=== PATIENT | male | born 1960 | race Caucasian/White ===

== ENCOUNTER → 2017-08-07 | Outpatient (CLI) | payer BC | END | disposition home or self-care (01) | LOC: NM 08:25 | DX: R06.00 Dyspnea, unspecified (principal) | CPT/HCPCS: 78452; 93017; 93306; 96374; A9500 ==

== ENCOUNTER → 2018-12-19 | Outpatient (CLI) | payer BC ==
--- NOTE | 2018-12-19 17:54 | RAD ---
CT CHEST WO CONTRAST INDICATION: COPD, history of smoking. COMPARISON STUDY: Chest radiograph 11/05/2018. TECHNIQUE: Unenhanced axial images were obtained through the lungs and upper abdomen. Coronal and sagittal multiplanar reconstructions were also obtained. PQRS compliance statement: One or more of the following individualized dose reduction techniques were utilized for this examination: 1. Automated exposure control 2. Adjustment of the mA and/or kV according to patient size 3. Use of iterative reconstruction technique FINDINGS: Lungs and Airways: Small area of right upper lobe tree-in-bud opacities and groundglass nodules. Endobronchial mucous plugging in this region. Calcified pulmonary granulomas. Pleura: The pleural spaces are normal. Heart and Mediastinum: The visualized thyroid gland is normal in size and attenuation. No axillary or supraclavicular lymphadenopathy. No mediastinal, hilar or retrocrural lymphadenopathy. Calcified mediastinal and hilar lymph nodes consistent with remote granulomatous disease. Normal cardiac size. No pericardial effusion. Coronary artery atherosclerotic disease. Atherosclerosis of the thoracic aorta. Comment glass and tree-in-bud of opacities with endobronchial mucous plugging in this region Abdomen: Hepatic steatosis. Bones and Soft Tissues: Degenerative changes of the spine. IMPRESSION: 1. Small area of right upper lobe groundglass nodules and tree-in-bud opacities with endobronchial mucous plugging, likely infectious bronchiolitis or aspiration bronchiolitis. 2. No pulmonary mass. No thoracic lymphadenopathy. 3. Coronary artery atherosclerotic disease. Electronically signed by: Pascual Rodriguez MD (12/19/2018 5:52 PM) [id number]
== END | disposition home or self-care (01) ==
LOC: CT 13:08
PROVIDERS: ATTEND Internal Medicine Pulmonary Disease
DX: J44.9 Chronic obstructive pulmonary disease, unspecified (principal); J84.10 Pulmonary fibrosis, unspecified; R91.8 Other nonspecific abnormal finding of lung field; J98.09 Other diseases of bronchus, not elsewhere classified; I25.10 Atherosclerotic heart disease of native coronary artery without angina pectoris; I70.0 Atherosclerosis of aorta; K76.0 Fatty (change of) liver, not elsewhere classified; Z87.891 Personal history of nicotine dependence
CPT/HCPCS: 71250

== ENCOUNTER → 2020-06-15 | Day surgery (SDC) | payer BC ==
[~2020-06-15] MED LIST: FLUT1BLS3 IH; IV RINGERS,LACTATED 1000ML 1,000 ML IV SCH; LOSA1TAB19 PO; OMEP40CA45 PO
[2020-06-15 09:15] VITALS: BP 166/95
--- NOTE | 2020-06-17 15:12 | PATHOLOGY ---
[facility] Accession Number: [id number] . 01 Material submitted: . rectum - RECTAL POLYP . 01 Clinical history: . COLORECTAL CANCER SCREENING COLON ENDOSCOPY CHRONIC OBSTRUCTION . 02 Diagnosis: Colorectal biopsies, rectal polyps: - Tubular adenoma (1). - Hyperplastic polyps (3). (JPM:nirmala; 06/17/2020) R 06/17/2020 1012 Local . 02 Comment: There is no high-grade dysplasia or evidence of malignancy. (JPM:nirmala; 06/17/2020) . 02 Electronically signed: . Mejia Partida MD, Pathologist NPI- [id number] . 01 Gross description: . The specimen is received in formalin, labeled "Osorio Ray, rectal polyps". Received are multiple segments of pale leyva tissue ranging in size from 0.2-0.4 cm in maximum dimensions. The specimen is submitted entirely in cassette A1. ([facility]; 06/16/2020) QA/QA 06/16/2020 1157 Local . 02 Pathologist provided ICD-10: D12.8, K62.1 . 02 CPT . 082588 Specimen Comment: A courtesy copy of this report has been sent to [phone], [phone] Specimen Comment: [id number] Specimen Comment: Report sent to / DR PAPPAS Performed at: 01 [facility] [address], [place] [id number] MD Jensen Lizama MD Phone: [phone] Performed at: 02 [facility] [address] [place], [place] [id number] MD Mejia Partida MD Phone: [phone]
== END | disposition home or self-care (01) ==
LOC: ENDOS 06:14
PROVIDERS: ATTEND Internal Medicine Gastroenterology
DX: R10.32 Left lower quadrant pain (principal); K64.0 First degree hemorrhoids; K57.30 Diverticulosis of large intestine without perforation or abscess without bleeding; D12.8 Benign neoplasm of rectum; K63.89 Other specified diseases of intestine; I10 Essential (primary) hypertension; G47.30 Sleep apnea, unspecified; K21.9 Gastro-esophageal reflux disease without esophagitis; Z87.891 Personal history of nicotine dependence; Z79.899 Other long term (current) drug therapy; Z98.890 Other specified postprocedural states; Z20.822 Contact with and (suspected) exposure to COVID-19
CPT/HCPCS: 45380; 45385; 87426; 88305